=== PATIENT | male | born 1945 | race Caucasian/White ===

== ENCOUNTER 2022-04-19 10:12 | Outpatient (CLI) | payer OTHER, SELFPAY ==
--- NOTE | 2022-04-19 10:24 | USCV_ITS ---
DannBobby fischer Age: 77 Gender: M : 1945 Exam Date: 04/19/2022 10:57 Ordering Phys: Nichole Upton NP Technologist: Joby James Exam Location: [facility] [place] Indication: TIA BP: 115 / 67 HR: 59 Rhythm: Sinus Technical Quality: Adequate MEASUREMENTS (Male / Female) Normal Values 2D ECHO LV Diastolic Diameter PLAX 4.2 cm 4.2 - 5.9 / 3.9 - 5.3 cm LV Systolic Diameter PLAX 2.8 cm IVS Diastolic Thickness 0.9 cm 0.6 - 1.0 / 0.6 - 0.9 cm IVS Systolic Thickness 0.9 cm LVPW Diastolic Thickness 1.2 cm 0.6 - 1.0 / 0.6 - 0.9 cm LVPW Systolic Thickness 1.6 cm LVOT Diameter 2.0 cm LV Ejection Fraction 2D Teich 61.3 % LV Ejection Fraction MOD 2C 59.7 % LV Ejection Fraction 2C AL 59.5 % LA Diameter 3.4 cm LA Width 4.2 cm LA Height 4.6 cm RA Width 3.3 cm RA Height 4.3 cm Aorta at Sinotubular Diameter 2.5 cm IVC Diameter 1.5 cm M-MODE Aortic Annulus Diameter 3.3 cm LA Ao Ratio MM 1.0 MV E Point Septal Separation 0.7 cm DOPPLER AV Peak Velocity 125.7 cm/s LVOT Peak Velocity 118.0 cm/s AV Area Cont Eq vti 2.6 cm squared AV Area Cont Eq pk 2.9 cm squared MV Peak Velocity 140.0 cm/s MV Area PHT 5.8 cm squared Mitral E to A Ratio 1.2 MV E' Velocity 35.0 cm/s Mitral E to MV E' Ratio 9.4 Mitral E to LV E' Lateral Ratio 7.7 Mitral E to LV E' Septal Ratio 12.4 TR Peak Velocity 196.2 cm/s TR Peak Gradient 15.4 mmHg TR Mean Velocity 108.9 cm/s TR Mean Gradient 4.8 mmHg TR Velocity Time Integral 32.7 cm Right Atrial Pressure 3.0 mmHg Pulmonary Artery Systolic Pressu 18.4 mmHg PV Peak Velocity 97.0 cm/s RV Acceleration Time 0.1 s RV Ejection Time 0.3 s RV AcT/ET 0.4 FINDINGS Left Ventricle Normal left ventricular size, systolic function and wall thickness, with no regional wall motion abnormalities. Left ventricular ejection fraction is estimated at 60 %. Abnormal septal motion consistent with conduction abnormality. Right Ventricle Normal right ventricular size and systolic function. RVSP could not be calculated due to incomplete tricuspid regurgitation velocity profile. Right Atrium Normal right atrial size. No evidence of intracardiac shunt by bubble study. Left Atrium Upper normal left atrial size. Mitral Valve Moderately thickened mitral valve. Somewhat restricted movement of posterior mitral leaflet. No mitral valve stenosis. Mild- moderate mitral valve regurgitation. Aortic Valve Aortic valve not well visualized. No aortic valve stenosis. Mild aortic valve regurgitation. Tricuspid Valve Structurally normal tricuspid valve. Trace tricuspid valve regurgitation. Pulmonic Valve Pulmonic valve not well visualized. No pulmonary valve stenosis. Trace to mild pulmonary valve regurgitation. Pericardium No pericardial effusion. Aorta Normal-sized aortic root. IVC Normal IVC dimension with >50% respiratory change of the inferior vena cava. CONCLUSIONS 1. Normal left ventricular size, systolic function and wall thickness, with no regional wall motion abnormalities. Left ventricular ejection fraction is estimated at 60 %. 2. Normal right ventricular size and systolic function. 3. No evidence of intracardiac shunt by bubble study. 4. Mild-moderate mitral valve regurgitation. 5. Mild aortic valve regurgitation. 6. No prior similar studies to compare. Radha Wei MD (Electronically Signed) Final Date: 19 April 2022 12:49 S
== END 2022-04-19 10:13 | disposition home or self-care (01) ==
PROVIDERS: PCP Nurse Practitioner Primary Care; Visit Provider Nurse Practitioner Primary Care
DX: G45.9 Transient cerebral ischemic attack, unspecified (principal); I08.0 Rheumatic disorders of both mitral and aortic valves
CPT/HCPCS: C8929

== ENCOUNTER → 2022-12-18 08:41 | Outpatient (BNVA) | payer OTHER, SELFPAY | PROVIDERS: PCP Nurse Practitioner Primary Care; Visit Provider Nurse Practitioner Family | DX: L85.9 Epidermal thickening, unspecified (principal); H61.032 Chondritis of left external ear; L57.0 Actinic keratosis | CPT/HCPCS: 17000; 17003; 69100; 99213 ==

== ENCOUNTER → 2023-07-25 08:15 | Outpatient (BNVA) | payer OTHER, SELFPAY | PROVIDERS: PCP Nurse Practitioner Primary Care; Visit Provider Nurse Practitioner Family | DX: Z85.828 Personal history of other malignant neoplasm of skin (principal); D69.2 Other nonthrombocytopenic purpura; D22.5 Melanocytic nevi of trunk; L57.8 Other skin changes due to chronic exposure to nonionizing radiation; L82.1 Other seborrheic keratosis; L81.4 Other melanin hyperpigmentation | CPT/HCPCS: 99213 ==